=== PATIENT | female | born 1960 | race Caucasian/White ===

== ENCOUNTER 2024-01-30 11:29 | Emergency (ER) | payer OTHER ==
[2024-01-30 11:38] LABS: BASOPHILS ABSOLUTE AUTO 0.03 K/uL (0.00-0.10); BASOPHILS PERCENT AUTO 0.3 % (0.1-1.3); EOSINOPHILS ABSOLUTE AUTO 0.04 K/uL (0.00-0.40); EOSINOPHILS PERCENT AUTO 0.4 % (0.0-5.4); HEMOGLOBIN 13.5 g/dL (11.2-15.5); IMMATURE GRAN ABSOLUTE AUTO 0.03 K/uL (0.00-0.23); IMMATURE GRAN PERCENT AUTO 0.3 % (0.0-0.7); LYMPHOCYTES ABSOLUTE AUTO 1.34 K/uL (0.8-3.3); LYMPHOCYTES PERCENT AUTO 13.6 % (11.4-47.7); MEAN CORPUSCULAR HEMOGLOBIN 32.1 pg (31.6-35.5); MEAN CORPUSCULAR HGB CONC 35.5 g/dL (31.6-35.5); MEAN CORPUSCULAR VOLUME 90.5 fL (81.4-99.0); MONOCYTES ABSOLUTE AUTO 0.18 K/uL (0.20-0.90); MONOCYTES PERCENT AUTO 1.8 % (3.3-12.6); NEUTROPHILS ABSOLUTE AUTO 8.23 K/uL (1.0-7.6); NEUTROPHILS PERCENT AUTO 83.6 % (40.0-78.1); PLATELET COUNT,PLT 464 K/uL (130-375); WHITE BLOOD CELL COUNT,WBC 9.9 K/uL (3.2-11.0)
[2024-01-30] MEDS: Morphine 2 MG/ML SYRINGE IVPUSH ONE (11:40)
[2024-01-30] MEDS: Sodium Chloride 0.9% 1,000 ML IV ONE ×2 (11:42→13:00)
[2024-01-30] MEDS: HYDROmorphone 0.5 MG/0.5 ML Syringe IVPUSH ONE (12:04)
[2024-01-30 12:09] LABS: A/G RATIO 1.2 (1.2-2.2); ALANINE AMINOTRANSFERASE,ALT 23 U/L (12-78); ALBUMIN 4.4 g/dL (3.4-5.0); ALKALINE PHOSPHATASE 82 U/L (46-116); ASPARTATE AMNIOTRANSFERASE,AST 19 U/L (15-37); BILIRUBIN TOTAL 0.5 mg/dL (0.2-1.0); BLOOD UREA NITROGEN,BUN 15 mg/dL (7-18); CALCIUM 9.9 mg/dL (8.5-10.1); CARBON DIOXIDE,CO2 25 mmol/L (21-32); CHLORIDE,CL 95 mmol/L (100-108); EST CRCL DRUG DOSING (CG) 49.72 mL/min; ESTIMATED GFR 63 mL/min (>60); GLUCOSE RANDOM 151 mg/dL (74-106); PROTEIN TOTAL,TP 8.2 g/dL (6.4-8.2); SODIUM,NA 135 mmol/L (140-148); TROPONIN I HIGH SENSITIVITY 8.3 pg/mL (<=60.3)
[2024-01-30 12:15] LABS: ANION GAP 17.9 mmol/L (5.0-14.0); C-REACTIVE PROTEIN < 0.50 mg/dL (<0.50); POTASSIUM,K 2.9 mmol/L (3.6-5.2)
[2024-01-30] MEDS: HYDROmorphone 1 MG/ML Syringe IVPUSH ONE ×2 (13:03→14:22)
[2024-01-30] MEDS: Potassium Chloride 10 MEQ in Premix Bag 2 BAG IV ONE (13:04)
[2024-01-30] MEDS: Morphine 2 MG/ML SYRINGE ONE (13:04)
[2024-01-30] MEDS: Sodium Chloride 0.9% 100 ML ONE (13:56)
[2024-01-30] MEDS: Piperacillin/Tazobactam 4.5 GM in Sodium Chloride 0.9% 100 ML IV ONE (13:56)
[2024-01-30] MEDS: Potassium Chloride 10 MEQ in Premix Bag 1 BAG IV ONE (14:20)
[2024-01-30] MEDS: Iopamidol 612 MG/ML 100 ML Bottle IV SCH (15:08)
[2024-01-30] MEDS: Sodium Chloride 0.9% 10 ML Syringe FLUSH PRN (15:09)
[2024-01-30] MEDS: Sodium Chloride 0.9% 100 ML IV SCH (15:09)
== END 2024-01-30 15:34 ==
LOC: JP.ED 11:29
DX: K63.1 Perforation of intestine (nontraumatic) (principal); E87.6 Hypokalemia; Z79.899 Other long term (current) drug therapy
CPT/HCPCS: 36415; 71275; 74177; 80053; 83605; 83690; 84145; 84484; 85025; 85379; 86140; 87040; 93005; 96361; 96365; 96375; 96376; 99285; J1170; J2270; J2543; J3480; J3490; J7030; Q9967; 87077; 93010